=== PATIENT | male | born 1985 | race Caucasian/White ===

== ENCOUNTER 2022-07-08 01:56 | Emergency (ER) | payer SELFPAY ==
[2022-07-08 02:03] VITALS: BP 160/102; PULSE 94; RESP 18; TEMP 97.9; BMI 32.1
== END 2022-07-08 03:13 | disposition home or self-care (01) ==
LOC: FER 01:56
DX: T50.901A Poisoning by unspecified drugs, medicaments and biological substances, accidental (unintentional), initial encounter (principal)
CPT/HCPCS: 99281-25